=== PATIENT | male | born 1950 | race Caucasian/White ===

== ENCOUNTER 2017-10-26 08:48 | Emergency (ER) | payer MEDICARE, OTHER ==
[2017-10-26 09:14] VITALS: BP 143/76
--- NOTE | 2017-10-26 09:35 | EDM.PDOC ---
<Rita Johnson - Last Filed: 10/26/17 09:47> ED HPI GENERAL MEDICAL PROBLEM - General Chief Complaint: Abdominal Pain Stated Complaint: SENT BY CANCER DOCTOR Time Seen by Provider: 10/26/17 09:13 Source of Information: Reports: Patient, Family History Limitations: Reports: No Limitations - History of Present Illness INITIAL COMMENTS - FREE TEXT/NARRATIVE: Patient is a 67 YO male who presents today for suspected gallbladder problems. Yesterday, he was at [facility] in [facility] with Dr. Renee. He underwent CT scan for suspected liver issues due to some RUQ pain. On the CT, they found inflammation of the gallbladder. He states he was told to come here today to undergo RUQ ultrasound and states Dr. Renee talked to a surgeon here at [facility] who is aware that he may need surgery. Patient reports pain in the right back that radiates to the RUQ. The pain is worse when he goes from a sitting to lying position and worse when coughing. He admits to chronic diarrhea due to his cancer treatments. He denies nausea, vomiting, fever or chills. The pain does not get worse with food. He last ate a few oreo cookies and coffee this morning around 0600. - Related Data Allergies Allergy/AdvReac Type Severity Reaction Status Date / Time codeine Allergy Mild Itching Verified 10/26/17 09:13 Home Meds: Home Meds Nitroglycerin [Nitrostat] 0.4 mg SL ASDIRECTED PRN 01/24/15 [History] Omeprazole [Prilosec] 20 mg PO DAILY 01/24/15 [History] Ca Carbonate/Vitamin D3/Vit K [Citracal Soft Chew] 1 tab PO DAILY 05/06/16 [ History] Ibuprofen 800 mg PO Q6HR 05/06/16 [History] Loperamide [Imodium] 2 mg PO Q6H PRN 05/06/16 [History] Everolimus [Afinitor] 10 mg PO DAILY 10/26/17 [History] Past Medical History HEENT History: Reports: Impaired Vision Other HEENT History: WEARS HEARING AIDES AND GLASSES Musculoskeletal History: Reports: Back Pain, Chronic Other Oncologic History: PT REPORTS NEUROENDOCRINE [place], REPORTS HE IS NOT CURRENTLY IN [place]. 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 Denies: Bloody Stool, Decreased Appetite, Nausea, Vomiting Skin: Reports: No Symptoms Neurological: Reports: No Symptoms Psychiatric: Reports: No Symptoms ED EXAM, GI/ABD - Physical Exam Exam: See Below Exam Limited By: No Limitations General Appearance: Alert, WD/WN, No Apparent Distress Eyes: Bilateral: EOMI Respiratory/Chest: No Respiratory Distress, Lungs Clear, Normal Breath Sounds Cardiovascular: Regular Rate, Rhythm, No Murmur GI/Abdominal Exam: Normal Bowel Sounds, Soft, Tender (RUQ with positive murphys sign). No: Guarding, Rebound Neurological: Alert, Oriented, CN II-XII Intact, Normal Cognition Psychiatric: Normal Affect, Normal Mood Skin Exam: Warm, Dry, Intact, No Rash Course - Vital Signs Last Recorded V/S: Last Vital Signs Temp 98.5 F 10/26/17 09:07 Pulse 78 10/26/17 09:07 Resp 16 10/26/17 09:07 BP 143/76 H 10/26/17 09:07 Pulse Ox 99 10/26/17 09:07 - Orders/Labs/Meds Orders: Active Orders 24 hr Category Date Time Status Peripheral IV Care [RC] . DIRECTED Care 10/26/17 10:00 Active COMPREHENSIVE METABOLIC PN,CMP [CHEM] Stat Lab 10/26/17 10:03 Results GAMMA GLUTAMYL TRANSFERASE,GGT [CHEM] Stat Lab 10/26/17 10:03 Results LIPASE [CHEM] Stat Lab 10/26/17 10:03 Results Sodium Chloride 0.9% [Normal Saline] 1,000 ml Med 10/26/17 10:00 Active IV ASDIRECTED Sodium Chloride 0.9% [Saline Flush] Med 10/26/17 10:00 Active 10 ml FLUSH ASDIRECTED PRN Peripheral IV Insertion Adult [OM.PC] Stat Oth 10/26/17 10:00 Ordered Medication Orders Sodium Chloride (Normal Saline) 1,000 mls @ 150 mls/hr IV ASDIRECTED SURESH Last Admin: 10/26/17 10:35 Dose: 150 mls/hr Sodium Chloride (Saline Flush) 10 ml FLUSH ASDIRECTED PRN PRN Reason: Keep Vein Open Last Admin: 10/26/17 10:35 Dose: 10 ml Labs: Laboratory Tests 10/26/17 10/26/17 10/26/17 Range/Units 10:03 10:03 10:03 WBC 3.76 L (4.23-9.07) K/mm3 RBC 5.57 (4.63-6.08) M/mm3 Hgb 14.6 (13.7-17.5) gm/L Hct 45.0 (40.1-51.0) % MCV 80.8 (79.0-92.2) fl MCH 26.2 (25.7-32.2) pg MCHC 32.4 (32.2-35.5) g/dl RDW Std Deviation 45.6 H (35.1-43.9) fL Plt Count 146 L (163-337) K/mm3 MPV 10.3 (9.4-12.3) fl Neut % (Auto) 53.7 (34.0-67.9) % Lymph % (Auto) 23.9 (21.8-53.1) % Burt % (Auto) 20.5 H (5.3-12.2) % Eos % (Auto) 1.3 (0.8-7.0) Baso % (Auto) 0.3 (0.1-1.2) % Neut # (Auto) 2.02 (1.78-5.38) K/mm3 Lymph # (Auto) 0.90 L (1.32-3.57) K/mm3 Burt # (Auto) 0.77 (0.30-0.82) K/mm3 Eos # (Auto) 0.05 (0.04-0.54) K/mm3 Baso # (Auto) 0.01 (0.01-0.08) K/mm3 Manual Slide Review Abnormal smear Sodium 143 (136-145) mEq/L Potassium 3.8 (3.5-5.1) mEq/L Chloride 109 H (98-107) mEq/L Carbon Dioxide 24 (21-32) mEq/L Anion Gap 13.8 (5-15) BUN 9 (7-18) mg/dL Creatinine 0.6 L (0.7-1.3) mg/dL Est Cr Clr Drug Dosing 133.17 mL/min Estimated GFR (MDRD) > 60 (>60) mL/min BUN/Creatinine Ratio 15.0 (14-18) Glucose 100 (80-115) mg/dL Calcium 8.7 (8.5-10.1) mg/dL Total Bilirubin 0.6 (0.2-1.0) mg/dL AST 74 H (15-37) U/L ALT 47 (16-63) U/L Alkaline Phosphatase 411 H (46-116) U/L C-Reactive Protein < 0.2 (<1.0) mg/dL Total Protein 7.1 (6.4-8.2) g/dl Albumin 2.9 L (3.4-5.0) g/dl Globulin 4.2 gm/dL Albumin/Globulin Ratio 0.7 L (1-2) Lipase 185 (73-393) U/L Meds: Medications Generic Name Dose Route Start Last Admin Trade Name Freq PRN Reason Stop Dose Admin Sodium Chloride 1,000 mls @ 150 mls/hr 10/26/17 10:00 10/26/17 10:35 Normal Saline IV 150 mls/hr ASDIRECTED SURESH Administration Sodium Chloride 10 ml 10/26/17 10:00 10/26/17 10:35 Saline Flush FLUSH 10 ml ASDIRECTED PRN Administration Keep Vein Open Departure - Departure Disposition: Home, Self-Care 01 Clinical Impression: Flank pain - Discharge Information Referrals: Terrie Walsh DO [Primary Care Provider] - Forms: ED Department Discharge Additional Instructions: Labs, clinical report and ultrasound report will be faxed to [facility]. He was not in the office this afternoon so I was not able to visit with him personally. Continue with current medications for now. Continue to work with your local medical provider. If you do start having worsening pain , nausea, vomiting, fever, chills or other worsening symptoms return to ED as needed. - My Orders Last 24 Hours: My Active Orders 10/26/17 10:00 Peripheral IV Care [RC] . DIRECTED Sodium Chloride 0.9% [Normal Saline] 1,000 ml IV ASDIRECTED Sodium Chloride 0.9% [Saline Flush] 10 ml FLUSH ASDIRECTED PRN Peripheral IV Insertion Adult [OM.PC] Stat 10/26/17 10:03 COMPREHENSIVE METABOLIC PN,CMP [CHEM] Stat GAMMA GLUTAMYL TRANSFERASE,GGT [CHEM] Stat LIPASE [CHEM] Stat - Assessment/Plan Last 24 Hours: My Active Orders 10/26/17 10:00 Peripheral IV Care [RC] . DIRECTED Sodium Chloride 0.9% [Normal Saline] 1,000 ml IV ASDIRECTED Sodium Chloride 0.9% [Saline Flush] 10 ml FLUSH ASDIRECTED PRN Peripheral IV Insertion Adult [OM.PC] Stat 10/26/17 10:03 COMPREHENSIVE METABOLIC PN,CMP [CHEM] Stat GAMMA GLUTAMYL TRANSFERASE,GGT [CHEM] Stat LIPASE [CHEM] Stat <Ghulam El L - Last Filed: 10/26/17 13:32> ED ROS GENERAL - Review of Systems Constitutional: Denies: Fever, Chills HEENT: Reports: No Symptoms Respiratory: Denies: Shortness of Breath, Pleuritic Chest Pain Cardiovascular: Denies: Chest Pain Endocrine: Reports: Fatigue Musculoskeletal: Reports: Back Pain (Right flank ) ED EXAM, GI/ABD - Physical Exam Throat/Mouth: Normal Inspection, Normal Oropharynx Head: Atraumatic. No: Facial Swelling Neck: Supple GI/Abdominal Exam: Tender (very mild tenderness RUQ with positive murphys sign, abd otherwise soft and nontender) Course - Re-Assessments/Exams Free Text/Narrative Re-Assessment/Exam: 10/26/17 13:22 initial hx and exam was done by Ashly Salinas PA student. I have also interviewed Ultrasound of gallbladder has been done which shows no gallstones or visible sludge. No gallbladder wall thickening, no biliary duct dilatation seen. See Radiology report for details. Labs are as documented. AST very slightly elevated. Alkaline phosphatase very mildly elevated. Bilirubin was normal. WBC low normal, CRP normal. Other labs as documented. Will fax this clinical and US report to Dr Renee, his Oncologist. Departure - Departure Time of Disposition: 11:40 Condition: Fair
[2017-10-26] MEDS ORDERED: Sodium Chloride 0.9% 1,000 ML IV SCH (10:00)
[2017-10-26] MEDS ORDERED: Sodium Chloride 0.9% 10 ML Syringe FLUSH PRN (10:00)
--- NOTE | 2017-10-26 12:17 | US ---
Limited abdominal ultrasound: Multiple real-time images of the upper right abdomen were obtained. Comparison: Prior CT abdomen and pelvis exam of 08/02/15. Liver shows no focal abnormality. Gallbladder contains no gallstones but is not well distended. No gallbladder wall thickening or biliary duct dilatation is seen. Right kidney shows no hydronephrosis or mass and has a length of 11.0 cm. pancreas poorly seen. No discrete abnormality is seen within the area of the pancreas. Impression: 1. No abnormality is appreciated on right upper quadrant abdominal ultrasound. Diagnostic code #1
== END 2017-10-26 13:49 | disposition home or self-care (01) ==
LOC: JD.ED 08:48
DX: R10.11 Right upper quadrant pain (principal); Z88.5 Allergy status to narcotic agent; Z79.899 Other long term (current) drug therapy; F17.210 Nicotine dependence, cigarettes, uncomplicated
CPT/HCPCS: 36415; 76705; 80053; 82977; 83690; 85025; 86140; 96360; 96361; 99285; J7040; J7050; 99283

== ENCOUNTER 2019-01-02 12:34 | Emergency (ER) | payer OTHER, MEDICARE ==
[2019-01-02 12:56] VITALS: BP 134/80
--- NOTE | 2019-01-02 14:24 | CR ---
Right elbow: Four views of the right elbow were obtained. Comparison: No prior elbow study. Soft tissue swelling is seen posteriorly. Joint spaces are preserved. No joint effusion is seen. No acute fracture or other bony abnormality is appreciated. Impression: 1. Posterior soft tissue swelling. 2. No bony abnormality is appreciated. Diagnostic code #2
--- NOTE | 2019-01-02 14:37 | EDM.PDOC ---
ED HPI GENERAL MEDICAL PROBLEM - General Chief Complaint: Upper Extremity Injury/Pain Stated Complaint: RT ARM SWELLING Time Seen by Provider: 01/02/19 14:10 - History of Present Illness INITIAL COMMENTS - FREE TEXT/NARRATIVE: 68-year-old male sent over from the [facility] for a possibly infected olecranon bursa on the right arm. Patient can't recall injuring this area however he's had increased swelling over the last couple of weeks he was seen in the [facility] started on Keflex 500 mg 3 times a day for 10 days and to continue to get worse. Today at the [facility] they aspirated for culture and a significant amount of with the patient describes as pus-containing fluid came out. Patient denies any fevers or chills no systemic symptoms. Patient is on oral chemotherapy and I do not have the records to clarify what he type of cancer he has, or what the chemotherapy is. Right Elbow Pain Score (Numeric/FACES): 6 - Related Data Allergies Allergy/AdvReac Type Severity Reaction Status Date / Time codeine Allergy Mild Itching Verified 01/02/19 12:50 Home Meds: Home Meds Nitroglycerin [Nitrostat] 0.4 mg SL ASDIRECTED PRN 01/24/15 [History] Omeprazole [Prilosec] 20 mg PO DAILY 01/24/15 [History] Ibuprofen 800 mg PO BID PRN 05/06/16 [History] Loperamide [Imodium] 2 mg PO Q6H PRN 05/06/16 [History] Albuterol Sulfate [Proair Respiclick] 2 puff IH Q6H PRN 01/02/19 [History] Aspirin 81 mg PO DAILY 01/02/19 [History] Cephalexin [Keflex] 500 mg PO BID 01/02/19 [History] Cholecalciferol (Vitamin D3) [Vitamin D3] 2,000 unit PO DAILY 01/02/19 [History] Denosumab [Xgeva] 120 mg SQ ASDIRECTED 01/02/19 [History] Doxycycline [Vibramycin] 100 mg PO BID #20 cap 01/02/19 [Rx] Furosemide 40 mg PO DAILY 01/02/19 [History] atorvaSTATin [Lipitor] 10 mg PO DAILY 01/02/19 [History] Past Medical History HEENT History: Reports: Impaired Vision Other HEENT History: WEARS HEARING AIDES AND GLASSES Cardiovascular History: Reports: High Cholesterol Gastrointestinal History: Reports: GERD Musculoskeletal History: Reports: Back Pain, Chronic Other Oncologic History: PT REPORTS NEUROENDOCRINE [place], REPORTS HE IS NOT CURRENTLY IN [place]. - Infectious Disease History Infectious Disease History: Reports: Chicken Pox - Past Surgical History HEENT Surgical History: Reports: Tonsillectomy Other Cardiovascular Surgeries/Procedures: CABG X4 (APPROXIMATELY 6 YEARS AGO) GI Surgical History: Reports: Appendectomy Other Neurological Surgeries/Procedures: HX OF BACK SURGERY X3 Other Musculoskeletal Surgeries/Procedures:: BILATERAL ANKLE SURGERY, RIGHT wrist SURGERY, laminectomy x3 Social & Family History - Tobacco Use Smoking Status *Q: Current Every Day Smoker Years of Tobacco use: 20 Packs/Tins Daily: 0.5 - Caffeine Use Caffeine Use: Reports: Coffee, Soda - Recreational Drug Use Recreational Drug Use: No - Living Situation & Occupation Living situation: Reports: with Family Occupation: Retired Review of Systems - Review of Systems Review Of Systems: See Below Constitutional: Reports: No Symptoms Respiratory: Reports: No Symptoms Cardiovascular: Reports: No Symptoms GI/Abdominal: Reports: No Symptoms ED EXAM, GENERAL - Physical Exam Exam: See Below Exam Limited By: No Limitations General Appearance: Alert, No Apparent Distress Respiratory/Chest: No Respiratory Distress, Lungs Clear, Normal Breath Sounds Cardiovascular: Normal Peripheral Pulses, Regular Rate, Rhythm, No Edema Extremities: Other (Examination of the patient's right elbow shows swelling in a classic distribution for an olecranon bursitis. It is draining some slightly off color serous second fluid with some bloody streaks in it some of it does appear cloudy. Culture obtained.) Course - Vital Signs Last Recorded V/S: Last Vital Signs Temp 36.2 C 01/02/19 12:47 Pulse 74 01/02/19 12:47 Resp 18 01/02/19 12:47 BP 134/80 01/02/19 12:47 Pulse Ox 99 01/02/19 12:47 - Orders/Labs/Meds Orders: Active Orders 24 hr Category Date Time Status Wound Care [RC] ONETIME Care 01/02/19 14:51 Active Labs: Laboratory Tests 01/02/19 01/02/19 01/02/19 Range/Units 15:00 15:00 15:00 WBC 4.75 (4.23-9.07) K/mm3 RBC 5.34 (4.63-6.08) M/mm3 Hgb 14.7 (13.7-17.5) gm/L Hct 44.0 (40.1-51.0) % MCV 82.4 (79.0-92.2) fl MCH 27.5 (25.7-32.2) pg MCHC 33.4 (32.2-35.5) g/dl RDW Std Deviation 43.0 (35.1-43.9) fL Plt Count 169 (163-337) K/mm3 MPV 10.5 (9.4-12.3) fl Neutrophils % (Manual) 64 H (40-60) % Band Neutrophils % 0 (0-10) % Lymphocytes % (Manual) 33 (20-40) % Atypical Lymphs % 0 % Monocytes % (Manual) 3 (2-10) % Eosinophils % (Manual) 0 L (0.8-7.0) % Basophils % (Manual) 0 L (0.2-1.2) Platelet Estimate Adequate RBC Morph Comment Normal ESR 16 H (0-15) mm/hr C-Reactive Protein 0.7 (<1.0) mg/dL - Re-Assessments/Exams Free Text/Narrative Re-Assessment/Exam: 01/02/19 14:[address] Hassan, orthopedic on-call at [facility] who agrees with change in his antibiotics will check a baseline CBC sedimentation rate and C- reactive protein. He can follow-up the clinic if it is not improving with a change of antibiotics. He also concurs with a mild compressive dressing over the area. This is best done middle to the end of this week. X-ray examination was done which is essentially unremarkable other than the expected soft tissue swelling 01/02/19 16:20 Sedimentation rate C-reactive protein and CBC are normal no elevated white count. 01/02/19 16:26 [facility] taking Keflex 250 twice a day. Anyway he will be started on doxycycline little better MRSA coverage. [facility] and the culture I obtained here Departure - Departure Time of Disposition: 16:21 Disposition: Home, Self-Care 01 Clinical Impression: Olecranon bursitis - Discharge Information Prescriptions: Doxycycline [Vibramycin] 100 mg PO BID #20 cap Referrals: Reema Guillen MD [Primary Care Provider] - Forms: ED Department Discharge Additional Instructions: Return to the emergency room with any questions problems worsening symptoms. Follow-up at the [facility] on Wednesday for recheck. Wear a compressive dressing such as the gauze and the David wrap to apply gentle pressure to the area he had it should not cause any numbness tingling or swelling in your hand. Take the antibiotic as directed. - My Orders Last 24 Hours: My Active Orders 01/02/19 14:51 Wound Care [RC] ONETIME - Assessment/Plan Last 24 Hours: My Active Orders 01/02/19 14:51 Wound Care [RC] ONETIME
== END 2019-01-02 16:30 | disposition home or self-care (01) ==
LOC: JD.ED 12:34
DX: M70.21 Olecranon bursitis, right elbow (principal); F17.210 Nicotine dependence, cigarettes, uncomplicated; Z88.5 Allergy status to narcotic agent; Z79.82 Long term (current) use of aspirin; Z79.899 Other long term (current) drug therapy; Z98.890 Other specified postprocedural states; Z95.1 Presence of aortocoronary bypass graft; Z90.49 Acquired absence of other specified parts of digestive tract
CPT/HCPCS: 36415; 73080-26-RT; 73080-RT; 85007; 85027; 85652; 86140; 87070; 99283; 99283-25